=== PATIENT | female | born 1965 | race Caucasian/White ===

== ENCOUNTER 2024-05-06 17:46 | Emergency (ER) | payer BC ==
[2024-05-06 18:30] LABS: Absolute Lymphocytes (CBC) 0.5 K/uL (0.7-4.9); Absolute Monocytes 0.6 K/uL (0.1-1.3); Basophils % 0.6 % (0-1.3); Eosinophils % 0.8 % (0-4.4); Hematocrit 39.3 % (36.0-45.0); Hemoglobin 13.1 g/dL (12.0-15.0); Lymphocytes % 8.3 % (15.3-44.8); MCH 30.7 pg (27.0-35.0); MCHC 33.2 g/dL (32.0-36.0); MCV 92.4 fL (80-100); MPV 7.9 fL (7.6-11.3); Monocytes % 10.3 % (3.3-12.3); Nucleated Red Blood Cells % 0.1 % (0-0); Platelets 166 thou/uL (152-406); RBC Red Blood Cell Count 4.25 M/uL (3.86-4.86); Red Cell Distribution Width 15.5 % (12.1-15.2)
[2024-05-06 18:37] LABS: PT Prothrombin Time 13.1 SECONDS (9.4-12.5); Protime INR 1.25
[2024-05-06 18:51] LABS: ALT/SGPT 120 U/L (13-56); AST/SGOT 129 U/L (15-37); Albumin 3.1 g/dL (3.4-5.0); Albumin/Globulin Ratio 0.9 (1.1-1.8); Alkaline Phosphatase 93 U/L (45-117); Anion Gap 8.8 mEq/L (5.0-15.0); BUN Blood Urea Nitrogen 11 mg/dL (7-18); Bicarbonate 29 mEq/L (21-32); Bilirubin Total 0.4 mg/dL (0.2-1.0); Globulin 3.4 g/dL (2.3-3.5); Glomerular Filtration Rate 56 ml/min (=/>90); Glucose Level 100 mg/dL (74-106); Lipase 25 U/L (13-75); Magnesium 1.7 mg/dL (1.6-2.4); NT PRO-BNP 299 pg/mL (<125); Potassium 3.8 mEq/L (3.5-5.1); Protein, Total 6.5 g/dL (6.4-8.2); Sodium Level 139 mEq/L (136-145); Troponin High Sensitivity 8.8 pg/mL (<58.9)
[2024-05-06 18:54] LABS: Bilirubin Direct < 0.2 mg/dL (0-0.2); Bilirubin Indirect, Calculated 0.2 mg/dL (0.2-0.8)
[2024-05-06 18:59] LABS: SARS-CoV-2 Antigen CONTROL BLUE LINE VIS/BG OK
[2024-05-06 19:00] LABS: SARS-CoV-2 Antigen Rapid Res Positive (Negative)
--- NOTE | 2024-05-06 19:11 | RAD REPORT ---
Procedure: Chest Pa And Lat (2 Views) HISTORY: Cough COMPARISON: none FINDINGS: The lungs appear clear of acute infiltrate. No significant pleural effusion noted. The heart is mildly to moderately enlarged. Post surgical changes involve the chest. IMPRESSION: No acute abnormality is displayed.
--- NOTE | 2024-05-06 19:33 | EDPHYS ---
Physician Documentation [facility] Name: Dov Barbour Age: 58 yrs Sex: Female : 1965 Arrival Date: 05/06/2024 Time: 17:46 Bed 4 Private MD: JOSÉ Physician Samm Farrar HPI: 05/06 18:09 This 58 yrs old Female presents to ER via EMS with complaints of fever , uri, keaton malise. 18:09 The patient or guardian reports cough, difficulty breathing, flu symptoms, arthralgias, keaton low-grade fever, myalgias, no appetite. Onset: The symptoms/episode began/occurred 2 day(s) ago. Modifying factors: The symptoms are alleviated by nothing. the symptoms are aggravated by activity. fever , malaise , cough, sp cabg. The patient reports fever, that was measured at 100 degrees Fahrenheit. Severity of symptoms: At their worst the symptoms were moderate in the emergency department the symptoms are unchanged. Associated signs and symptoms: Pertinent positives: chills, cough, myalgias, None. runny nose. Historical: - Allergies: 17:54 muscle relaxers; ap3 17:54 PENICILLINS; ap3 17:54 Sulfa (Sulfonamide Antibiotics); ap3 17:54 Codeine; ap3 17:54 Cefdinir; ap3 17:54 Ciprofloxacin; ap3 17:54 Augmentin; ap3 - PSHx: 17:54 CABG; ap3 - Immunization history:: Client reports having NOT received the Covid vaccine. - Infectious Disease History:: Denies. - Social history:: Smoking status: Patient denies any tobacco usage or history of. - Family history:: not pertinent. ROS: 18:09 Constitutional: Negative for fever, chills, and weight loss, Eyes: Negative for injury, keaton pain, redness, and discharge, ENT: Negative for injury, pain, and discharge, Neck: Negative for injury, pain, and swelling, Cardiovascular: Negative for chest pain, palpitations, and edema, Abdomen/GI: Negative for abdominal pain, nausea, vomiting, diarrhea, and constipation, Back: Negative for injury and pain, : Negative for injury, bleeding, discharge, and swelling, MS/Extremity: Negative for injury and deformity, Skin: Negative for injury, rash, and discoloration, Neuro: Negative for headache, weakness, numbness, tingling, and seizure, Psych: Negative for depression, anxiety, suicide ideation, homicidal ideation, and hallucinations, Allergy/Immunology: Negative for hives, rash, and allergies, Endocrine: Negative for neck swelling, polydipsia, polyuria, polyphagia, and marked weight changes, Hematologic/Lymphatic: Negative for swollen nodes, abnormal bleeding, and unusual bruising, 18:09 Constitutional: Positive for body aches, chills, fatigue, fever, malaise, 18:09 Respiratory: Positive for cough, shortness of breath, at rest. Exam: 18:09 Head/Face: Normocephalic, atraumatic. Eyes: Pupils equal round and reactive to light, keaton extra-ocular motions intact. Lids and lashes normal. Conjunctiva and sclera are non-icteric and not injected. Cornea within normal limits. Periorbital areas with no swelling, redness, or edema. ENT: Nares patent. No nasal discharge, no septal abnormalities noted. Tympanic membranes are normal and external auditory canals are clear. Oropharynx with no redness, swelling, or masses, exudates, or evidence of obstruction, uvula midline. Mucous membranes moist. Neck: Trachea midline, no thyromegaly or masses palpated, and no cervical lymphadenopathy. Supple, full range of motion without nuchal rigidity, or vertebral point tenderness. No Meningismus. Chest/axilla: Normal chest wall appearance and motion. Nontender with no deformity. No lesions are appreciated. Cardiovascular: Regular rate and rhythm with a normal S1 and S2. No gallops, murmurs, or rubs. Normal PMI, no JVD. No pulse deficits. Abdomen/GI: Soft, non-tender, with normal bowel sounds. No distension or tympany. No guarding or rebound. No evidence of tenderness throughout. Back: No spinal tenderness. No costovertebral tenderness. Full range of motion. Female : Normal external genitalia. Skin: Warm, dry with normal turgor. Normal color with no rashes, no lesions, and no evidence of cellulitis. MS/ Extremity: Pulses equal, no cyanosis. Neurovascular intact. Full, normal range of motion., bilateral aka Neuro: Awake and alert, GCS 15, oriented to person, place, time, and situation. Cranial nerves II-XII grossly intact. Motor strength 5/5 in all extremities. Sensory grossly intact. Cerebellar exam normal. Normal gait. Psych: Awake, alert, with orientation to person, place and time. Behavior, mood, and affect are within normal limits. 18:09 Constitutional: The patient appears well developed, febrile, 18:38 ECG was reviewed by the Attending Physician. [facility] Vital Signs: 17:50 BP 135 / 97; Pulse 79; Resp 19; Temp 99.3(O); Pulse Ox 98% on R/A; Weight 90.72 kg; ap3 Height 5 ft. 6 in. ; 20:00 BP 136 / 84; Pulse 76; Resp 17; Pulse Ox 94% ; jj7 21:00 BP 118 / 73; Pulse 71; Resp 18; Temp 98.1(O); Pulse Ox 98% on R/A; ha1 17:50 Body Mass Index 32.28 (90.72 kg, 167.64 cm) ap3 MDM: 18:04 Medical Screening Exam initiated keaton 18:12 Differential diagnosis: obstructed airway, tracheal injury, bronchitis, flu, URI, viral keaton Infection, bacterial infection, URI, bronchitis, pneumonia UTI, gastroenteritis, meningitis. Antibiotic administration: The patient is discharged and will get outpatient antibiotics, Levaquin. Differential Diagnosis altered mental status, sepsis, flu. Data reviewed: vital signs, nurses notes, lab test result(s), EKG, radiologic studies, plain films. Consideration of Admission/Observation Patient was admitted/placed on observation. Escalation of care including admission/observation considered. I considered the following discharge prescriptions or medication management in the emergency department Medications were administered in the Emergency Department. See MAR. Independent interpretation of the following test(s) in the Emergency Department EKG: See my EKG interpretation above. Test considered but Not performed: Ultrasound no abd usg. Care significantly affected by the following chronic conditions: Diabetes, Hypertension, Obesity. 05/06 18:08 Order name: Basic Metabolic Panel; Complete Time: 19: [facility] 05/06 18:08 Order name: CBC with Diff; Complete Time: : [facility] 05/06 18:08 Order name: LFT's; Complete Time: 19: [facility] 05/06 18:08 Order name: Magnesium; Complete Time: : [facility] 05/06 18:08 Order name: NT PRO-BNP; Complete Time: 19: [facility] 05/06 18:08 Order name: PT-INR; Complete Time: 19:01 [facility] 05/06 18:08 Order name: Troponin HS; Complete Time: 19:01 [facility] 05/06 18:08 Order name: Flu; Complete Time: 19:32 [facility] 02 18:08 Order name: Strep [facility] 05/06 18:08 Order name: SARS RAPID; Complete Time: 19:01 [facility] 05/06 18:08 Order name: Lipase; Complete Time: 19:01 [facility] 05/06 18:08 Order name: Blood Culture Adult (2) [facility] 05/06 19:03 Order name: Throat Culture [facility] 02 18:08 Order name: Chest Pa And Lat (2 Views) XRAY; Complete Time: 19:32 [facility] 05/06 19:02 Order name: US Abdomen Limited [facility] 05/06 18:08 Order name: Cardiac monitoring; Complete Time: 18:11 [facility] 05/06 18:08 Order name: EKG - Nurse/Tech; Complete Time: 18:35 [facility] 05/06 18:08 Order name: IV Saline Lock; Complete Time: 18:11 [facility] 05/06 18:08 Order name: Labs collected and sent; Complete Time: 18:11 [facility] 05/06 18:08 Order name: O2 Per Protocol; Complete Time: 18:11 [facility] 05/06 18:08 Order name: O2 Sat Monitoring; Complete Time: 18:11 [facility] EC:38 Rate is 75 beats/min. OK interval is normal. QRS interval is normal. QT interval is keaton normal. No Q waves. T waves are Inverted in leads I, aVL, V1, V2, V3, V4, V5, V6. No ST changes noted. Clinical impression: NSR w/ Non-specific ST/T Changes. Interpreted by me. Reviewed by me. Administered Medications: 19:02 CANCELLED (Duplicate Order): [id number] mg 100 ml IVPB once over 60 mins [facility] 20:00 Drug: AZITHromycin PO 500 mg PO once Route: PO; jj7 20:30 Follow up: Response: No adverse reaction ha1 20:00 Drug: Magnesium Sulfate IVPB 1 grams IVPB once over 1 hrs Route: IVPB; Infused Over: 1 jj7 hrs; Site: left antecubital; 21:41 Follow up: Response: No adverse reaction; IV Status: Completed infusion; IV Intake: ha1 100ml 20:00 Drug: Acetaminophen PO 1000 mg PO once Route: PO; jj7 21:41 Follow up: Response: No adverse reaction; Marked relief of symptoms ha1 20:10 Drug: NS 0.9% IV (30 ml/kg) 30 ml/kg IV at bolus once; Sepsis Protocol; to be given as jj7 a bolus over 90 minutes Route: IV; Rate: bolus; Site: left antecubital; 21:41 Follow up: Response: No adverse reaction; IV Status: Completed infusion ha1 20:51 Not Given (Duplicate Order): [id number] mg PO once jj7 20:51 Not Given (Patient Refused; STATES SHE TOOK HER OWN HOME PEPCID): [id number] mg IVP jj7 once; dilute with 10 mL 0.9% NaCl; give over 2 minutes 20:52 Drug: Ibuprofen PO 600 mg PO once Route: PO; jj7 21:42 Follow up: Response: No adverse reaction; Marked relief of symptoms ha1 Disposition Summary: 05/06/24 19:33 Discharge Ordered Notes: Location: Home [facility] Problem: new keaton Symptoms: have improved keaton Condition: Stable keaton Diagnosis - Acute upper respiratory infection, unspecified keaton - Fever, unspecified keaton - SARS-associated coronavirus as the cause of diseases classified elsewhere keaton Followup: keaton - With: Private Physician - When: 2 - 3 days - Reason: Recheck today's complaints, Continuance of care, Re-evaluation by your physician Followup: keaton - With: Sathish Pendleton MD - When: 2 - 3 days - Reason: Recheck today's complaints, Re-evaluation by your physician Discharge Instructions: - Discharge Summary Sheet keaton - Fever, Adult keaton - Upper Respiratory Infection, Adult keaton - Cool Mist Vaporizer keaton - Upper Respiratory Infection, Adult, Mugr-uq-Mfas keaton - Cough, Adult, Zdwz-lb-Dkko keaton - Viral Respiratory Infection, Kdlq-Cm-Yhmr keaton - Cough, Adult keaton - COVID-19 keaton - Symptoms of COVID-19 - [facility] (06/18/2021) keaton - COVID-19: Quarantine and Isolation - [facility] (06/26/2021) keaton - COVID-19: What to Do If You Are Sick - [facility] (06/18/2021) [facility] Forms: - Medication Reconciliation Form keaton - Antibiotic Education keaton - Prescription Opioid Use keaton - Patient Portal Instructions [facility] - Leadership Thank You Letter [facility] Prescriptions: - Paxlovid 300 mg (150 mg x 2)-100 mg Oral Tablet, Dose Pack - take 1 dose pack ORAL route as directed on dose pack take TWO 150 mg tablets of keaton nirmatrelvir with ONE 100 mg tablet of ritonavir twice daily for 5 days; 30 tablet; Refills: 0, Product Selection Permitted - ondansetron 4 mg Oral Tablet,disintegrating - take 1 tablet ORAL route every 6-8 hours for 5 days; 20 tablet; Refills: 0, [facility] Product Selection Permitted - Pepcid 20 mg Oral tablet - take 1 tablet ORAL route every 12 hours for 21 days; 42 tablet; Refills: 0, [facility] Product Selection Permitted - Tessalon Perles 100 mg Oral capsule - take 2 capsule ORAL route every 8 hours As needed; 30 capsule; Refills: 0, [facility] Product Selection Permitted - Zithromax 500 mg Oral Tablet - take 1 tablet ORAL route once daily for 5 days; 5 tablet; Refills: 0, Product [facility] Selection Permitted Signatures: Dispatcher [employer] EDMS Samm Farrar MD MD cha Prokisch, Amanda RN RN ap3 Alpesh Velasco RN RN jj7 Sharon Peterson RN RN br2 Fozia Estrada RN ha1 Corrections: (The following items were deleted from the chart) 18:08 18:08 BASIC METABOLIC PANEL+C.LAB.BRZ ordered. EDMS EDMS 18:08 18:08 CBC+H.LAB.BRZ ordered. EDMS EDMS 18:08 18:08 HEPATIC FUNCTION+C.LAB.BRZ ordered. EDMS EDMS 18:08 18:08 MAGNESIUM+C.LAB.BRZ ordered. EDMS EDMS 18:08 18:08 PROBNP+C.LAB.BRZ ordered. EDMS EDMS 18:08 18:08 PROTIME (+INR)+COAG.LAB.BRZ ordered. EDMS EDMS 18:08 18:08 Troponin High Sensitivity+C.LAB.BRZ ordered. EDMS EDMS 18:08 18:08 Influenza Screen (A \T\ B)+BA.LAB.BRZ ordered. EDMS EDMS 18:08 18:08 Group A Streptococcus Rapid Sc+BA.LAB.BRZ ordered. EDMS EDMS 18:08 18:08 SARS-COV-2 Antigen Rapid+I.LAB.BRZ ordered. EDMS EDMS 18: 18:08 LIPASE+C.LAB.BRZ ordered. EDMS EDMS 18: 18:08 BLOOD CULTURE*+BA.LAB.BRZ ordered. EDMS EDMS 18: 18:09 Chest Pa And Lat (2 Views)+RAD.RAD.BRZ ordered. EDMS EDMS : 18:09 levofloxacin IVPB 500 mg 100 ml IVPB once over 60 mins ordered. keaton keaton 19: 19:02 Abdomen Limited+US.RAD.BRZ ordered. EDMS EDMS
--- NOTE | 2024-05-06 19:33 | ER ---
Nurse's Notes [facility] Name: Dov Barbour Age: 58 yrs Sex: Female : 1965 Arrival Date: 05/06/2024 Time: 17:46 Bed 4 Private MD: Diagnosis: Acute upper respiratory infection, unspecified;Fever, unspecified;SARS-associated coronavirus as the cause of diseases classified elsewhere Presentation: 05/06 17:50 Chief complaint: Patient states: she is 7 weeks post CABG that was done in [place]. She ap3 reports that she has been having fever, nausea and vomiting that started yesterday and got worse this morning. Coronavirus screen: Client presents with at least one sign or symptom that may indicate coronavirus-19. Ebola Screen: No symptoms or risks identified at this time. Initial Sepsis Screen: Does the patient meet any 2 criteria? No. Patient's initial sepsis screen is negative. Does the patient have a suspected source of infection? No. Patient's initial sepsis screen is negative. Risk Assessment: Do you want to hurt yourself or someone else? Patient reports no desire to harm self or others. Onset of symptoms was May 05, 2024. Care prior to arrival: Medication(s) given: Normal saline infusion, zofran 4 mg, IV initiated. 18 GA, in the left antecubital area. 17:50 Method Of Arrival: EMS: [facility] ap3 17:50 Acuity: ANDREW 3 ap3 Triage Assessment: 17:55 General: Appears in no apparent distress. Behavior is calm, cooperative, appropriate ap3 for age. General: Reports fever for feeling ill for fatigue for. Pain: Complains of pain in generalized body aches. Neuro: Level of Consciousness is awake, alert, obeys commands, Oriented to person, place, time, situation, Appropriate for age. Cardiovascular: Patient's skin is warm and dry. Respiratory: Airway is patent Respiratory effort is even, unlabored, Respiratory pattern is regular, symmetrical. GI: Reports nausea, vomiting. Historical: - Allergies: 17:54 muscle relaxers; ap3 17:54 PENICILLINS; ap3 17:54 Sulfa (Sulfonamide Antibiotics); ap3 17:54 Codeine; ap3 17:54 Cefdinir; ap3 17:54 Ciprofloxacin; ap3 17:54 Augmentin; ap3 - PSHx: 17:54 CABG; ap3 - Immunization history:: Client reports having NOT received the Covid vaccine. - Infectious Disease History:: Denies. - Social history:: Smoking status: Patient denies any tobacco usage or history of. - Family history:: not pertinent. Screenin:56 Abuse screen: Denies threats or abuse. Nutritional screening: No deficits noted. ap3 Tuberculosis screening: No symptoms or risk factors identified. 21:40 [facility] ED Fall Risk Assessment (Adult) History of falling in the last 3 months, ha1 including since admission No falls in past 3 months (0 pts) Confusion or Disorientation No (0 pts) Intoxicated or Sedated No (0 pts) Impaired Gait No (0 pts) Mobility Assist Device Used No (0 pt) Altered Elimination Score/Fall Risk Level 0 - 2 = Low Risk Oriented to surroundings, Maintained a safe environment, Educated pt \T\ family on fall prevention, incl call for assistance when getting out of bed, Hourly rounding (assess needs \T\ fall precautionary measures) done. Assessment: 20:00 Reassessment: ASSUMED CARE OF PT. PT SITTING IN BED. NO DISTRESS NOTED. VS STABLE. jj7 FAMILY AT BEDSIDE. General: Appears in no apparent distress. comfortable, Behavior is calm, cooperative, appropriate for age. Neuro: Reports headache. 20:05 Reassessment: discharge delayed due to ongoing medication. ha1 21:00 Reassessment: Patient and/or family updated on plan of care and expected duration. Pain ha1 level reassessed. Patient is alert, oriented x 3, equal unlabored respirations, skin warm/dry/pink. Vital Signs: 17:50 BP 135 / 97; Pulse 79; Resp 19; Temp 99.3(O); Pulse Ox 98% on R/A; Weight 90.72 kg; ap3 Height 5 ft. 6 in. ; 20:00 BP 136 / 84; Pulse 76; Resp 17; Pulse Ox 94% ; jj7 21:00 BP 118 / 73; Pulse 71; Resp 18; Temp 98.1(O); Pulse Ox 98% on R/A; ha1 17:50 Body Mass Index 32.28 (90.72 kg, 167.64 cm) ap3 ED Course: 17:48 Patient arrived in ED. eb 17:54 Triage completed. ap3 17:54 Patient has correct armband on for positive identification. Bed in low position. Call ap3 light in reach. Side rails up X2. Client placed on continuous cardiac and pulse oximetry monitoring. NIBP monitoring applied. court recording monitor on. Pulse ox on. NIBP on. Door closed. Noise minimized. Warm blanket given. 17:56 Arm band placed on right wrist. ap3 18:04 Samm Farrar MD is Attending Physician. keaton 18:28 Maintain EMS IV. Dressing intact. Good blood return noted. Site clean \T\ dry. Gauge \T\ ap 3 site: 18g left AC. Flushed with 10 mL NS. 18:29 Flu Sent. ap3 18:29 Strep Sent. ap3 18:29 SARS RAPID Sent. ap3 18:29 Lipase Sent. ap3 18:29 Blood Culture Adult (2) Sent. ap3 18:29 Basic Metabolic Panel Sent. ap3 18:29 CBC with Diff Sent. ap3 18:29 LFT's Sent. ap3 18:29 Magnesium Sent. ap3 18:29 NT PRO-BNP Sent. ap3 18:29 PT-INR Sent. ap3 18:29 Troponin HS Sent. ap3 18:35 EKG done, by ED staff, reviewed by Samm Farrar MD. em1 18:57 Chest Pa And Lat (2 Views) XRAY In Process Unspecified. EDMS 19:26 US Abdomen Limited In Process Unspecified. EDMS 19:33 Sathish Pendleton MD is Referral Physician. keaton 20:32 Alpesh Velasco, LORENZA is Primary Nurse. jj7 21:40 No provider procedures requiring assistance completed. IV discontinued, intact, ha1 bleeding controlled, No redness/swelling at site. Pressure dressing applied. Administered Medications: 19:02 CANCELLED (Duplicate Order): [id number] mg 100 ml IVPB once over 60 mins keaton 20:00 Drug: AZITHromycin PO 500 mg PO once Route: PO; jj7 20:30 Follow up: Response: No adverse reaction ha1 20:00 Drug: Magnesium Sulfate IVPB 1 grams IVPB once over 1 hrs Route: IVPB; Infused Over: 1 jj7 hrs; Site: left antecubital; 21:41 Follow up: Response: No adverse reaction; IV Status: Completed infusion; IV Intake: ha1 100ml 20:00 Drug: Acetaminophen PO 1000 mg PO once Route: PO; jj7 21:41 Follow up: Response: No adverse reaction; Marked relief of symptoms ha1 20:10 Drug: NS 0.9% IV (30 ml/kg) 30 ml/kg IV at bolus once; Sepsis Protocol; to be given as jj7 a bolus over 90 minutes Route: IV; Rate: bolus; Site: left antecubital; 21:41 Follow up: Response: No adverse reaction; IV Status: Completed infusion ha1 20:51 Not Given (Duplicate Order): [id number] mg PO once jj7 20:51 Not Given (Patient Refused; STATES SHE TOOK HER OWN HOME PEPCID): [id number] mg IVP jj7 once; dilute with 10 mL 0.9% NaCl; give over 2 minutes 20:52 Drug: Ibuprofen PO 600 mg PO once Route: PO; j 21:42 Follow up: Response: No adverse reaction; Marked relief of symptoms ha1 Medication: 21:41 VIS not applicable for this client. ha1 Intake: 21:41 IV: 100ml; Total: 100ml. ha1 Outcome: 19:33 Discharge ordered by MD. pugh 21:40 Discharged to home ambulatory, ha1 21:40 Condition: stable 21:40 Discharge instructions given to patient, Instructed on discharge instructions, follow up and referral plans. medication usage, Demonstrated understanding of instructions, follow-up care, medications, Prescriptions given X 4, 21:42 Patient left the ED. ha1 Signatures: Dispatcher [employer] EDMS Samm Farrar MD MD cha Martinez, Eric em1 Madeleine Clayton RN RN [email or web address] Helga Cardenas Heidy, RN RN ha1 Alpesh Velasco RN RN jj7 Corrections: (The following items were deleted from the chart) 20:31 20:29 BP 136 / 84; Pulse 76bpm; Resp 17bpm; Pulse Ox 94%; jj7 j 20:51 20:51 NS 0.9% IV (30 ml/kg) 2721.6 mL IV at bolus in left antecubital jj7 j 21:41 21:41 Response: No adverse reaction; IV Status: Completed infusion; IV Intake: 50ml ha1 ha1
--- NOTE | 2024-05-06 19:42 | RAD REPORT ---
EXAM: Right upper quadrant ultrasound. CLINICAL HISTORY: Abdominal pain COMPARISON: None FINDINGS: A gallstone is not seen. Gallbladder wall not thickened. Biliary tree normal caliber IMPRESSION: No significant abnormalities displayed
[2024-05-06] MEDS ORDERED: MAGNESIUM SULFATE 1 gm IVPB 1 GM/100 ML BAG IV ONE (19:46)
[2024-05-06] MEDS ORDERED: AZITHROMYCIN 250 MG TAB ONE (19:46)
[2024-05-06] MEDS ORDERED: ACETAMINOPHEN 500 MG TAB ONE (19:51)
[2024-05-06] MEDS ORDERED: FAMOTIDINE 20 MG/2 ML VIAL IV ONE (20:37)
[2024-05-06] MEDS ORDERED: IBUPROFEN 200 MG TAB PO ONE (20:37)
[2024-05-06] MEDS ORDERED: NA CHLORIDE 0.9% 2,000 ML ONE (20:38)
[2024-05-06 21:48] VITALS: BP 118/73; TEMP 98.1; O2SAT 98
--- NOTE | 2024-05-10 12:53 | EKG ---
Test Date: 2024-05-06 Test Time: 18:33:12 Delivery Rn: GOMEZ MEASUREMENT RESULTS: Intervals: Rate: 75 MD: 124 QRSD: 82 QT: 394 QTc: 439 [place]: P: 31 MD: 124 QRS: 76 T: 105 INTERPRETIVE STATEMENTS: Normal sinus rhythm Nonspecific T wave abnormality Abnormal ECG No previous ECG available for comparison Electronically Signed On 05-10-24 12:45:49 [facility] by Paxton Seth
== END 2024-05-06 21:42 | disposition home or self-care (01) ==
LOC: ER 17:46
DX: U07.1 COVID-19 (principal); J06.9 Acute upper respiratory infection, unspecified
CPT/HCPCS: 96365; 93005; 87040 ×2; 87070; 85025; 80048; 36415; 83735; 85610; 80076; 87081; 84484; 83690; 83880; 87804 ×2; 71046; 76705; 99285; 87811; J3475; J7030